=== PATIENT | male | born 1985 | race Caucasian/White ===

== ENCOUNTER 2022-05-07 00:16 | Emergency (ER) | payer MEDICAID ==
[~2022-05-07] VITALS: Ht 185.4 cm; Wt 104.3 kg
[2022-05-07] MEDS ORDERED: diphenhydrAMINE 50 MG/1 ML VIAL ONE (00:27)
[2022-05-07] MEDS ORDERED: HALOPERIDOL LACTATE 5 MG/1 ML VIAL ONE (00:27)
[2022-05-07] MEDS ORDERED: LORAZEPAM 2 MG/1 ML VIAL ONE (00:28)
[2022-05-07] MEDS ORDERED: HALOPERIDOL LACTATE 5 MG/1 ML VIAL IM ONE (00:30)
[2022-05-07] MEDS ORDERED: diphenhydrAMINE 50 MG/1 ML VIAL IM ONE (00:30)
[2022-05-07] MEDS ORDERED: LORAZEPAM 2 MG/1 ML VIAL IM ONE (00:30)
--- NOTE | 2022-05-07 00:46 | NUR ---
pt bib ra, per er triage assessment pt is here for psych evaluation. pt was given haldol, ativan and benadryl. pt is making noises but is otherwise cooperative.
[2022-05-07 00:53] LABS: HEMATOCRIT 50.4 % (36.7-47.1); MEAN CORPUSCULAR HEMOGLOBIN 30.5 uug (23.8-33.4); MEAN CORPUSCULAR VOLUME 88.8 fL (73.0-96.2); PLATELET COUNT (AUTO) 262 K/uL (152-348)
[2022-05-07 00:58] LABS: ALANINE AMINOTRANSFERASE 75 U/L (16-63); ALKALINE PHOSPHATASE 80 U/L (50-136); ASPARTATE AMINOTRANSFERASE 84 U/L (15-37); BILIRUBIN,DIRECT 0.4 mg/dL (0.0-0.2); BILIRUBIN,TOTAL 2.7 mg/dL (0.2-1.0); CARBON DIOXIDE 23 mmol/L (21-32); CHLORIDE 91 mmol/L (98-107); CREATININE 3.6 mg/dL (0.6-1.3); GLUCOSE 79 mg/dL (74-106); POTASSIUM 4.1 mmol/L (3.5-5.1); TOTAL PROTEIN, SERUM 8.5 g/dL (6.4-8.2); UREA NITROGEN, BLOOD 31 mg/dL (7-18)
[2022-05-07 00:59] LABS: ACETAMINOPHEN < 2.0 ug/mL (10-30); ETHANOL < 3 MG/DL (0-0)
--- NOTE | 2022-05-07 01:02 | NUR ---
Dr. Smith at bedside for mse.
[2022-05-07] MEDS ORDERED: IV NS 1000 ML 1,000 ML IV ONE ×3 (01:15→06:45)
[2022-05-07] MEDS ORDERED: LIDOCAINE 2% (GLYDO= UROJET) 10 ML JELLY MM ONE ×2 (01:18→01:45)
[2022-05-07 02:11] LABS: *BILIRUBIN,URIN 2+ (NEGATIVE); *CLARITY,URINE CLOUDY (CLEAR); *COLOR,URINE YELLOW (YELLOW); *KETONES,URINE 1+ (NEGATIVE); *UROBILINOGEN,URINE 0.2 E.U./dl (NORMAL); LEUKOCYTE ESTERASE ,URINE NEGATIVE (NEGATIVE); NITRITE, URINE NEGATIVE (NEGATIVE); UGLUCOSE NEGATIVE (NEGATIVE)
[2022-05-07 02:18] LABS: *BLOOD, URINE TRACE INTACT (NEGATIVE)
[2022-05-07 02:21] LABS: *AMPHETAMINE, URINE POSITIVE (NEGATIVE); *CANNABINOID, URINE NEGATIVE (NEGATIVE); *COCCAINE, URINE NEGATIVE (NEGATIVE); *OPIATE, URINE POSITIVE (NEGATIVE); *PHENCYCLIDINE SCREEN,URINE NEGATIVE (NEGATIVE)
--- NOTE | 2022-05-07 03:26 | NUR ---
pt desats, possible sleep apnea. 3 liters nc applied. pt will wake up and for no reason make moaning noises. and moves around with no reason.
[2022-05-07 07:58] LABS: CREATININE 2.2 mg/dL (0.6-1.3); POTASSIUM 4.4 mmol/L (3.5-5.1)
[2022-05-07 09:42] LABS: MUCUS,URINE MANY /LPF (0-FEW)
[2022-05-07 09:43] LABS: RBC,URINE 0-3 /HPF (0-3)
[2022-05-07 09:44] LABS: BACTERIA,URINE FEW /HPF (NONE SEEN); SQUAMOUS EPITHELIAL CELL,UR NONE SEEN /HPF (NONE SEEN)
[2022-05-07 09:45] LABS: URINE AMORPHOUS PHOSPHATES PRESENT /HPF
[2022-05-07] MEDS ORDERED: IV NORMAL SALINE 1000 ML BAG IV ONE (10:00)
[2022-05-07 13:10] VITALS: BP 141/72
--- NOTE | 2022-05-07 13:10 | NUR ---
Patient discharged to home in stable condition. Written and verbal after care instructions given. Patient verbalizes understanding of instructions. Stressed follow up or return to ER for worsening s/s.
== END 2022-05-07 13:12 | disposition home or self-care (01) ==
LOC: ER 00:16
DX: F15.10 Other stimulant abuse, uncomplicated (principal); R45.1 Restlessness and agitation; G47.30 Sleep apnea, unspecified; R00.0 Tachycardia, unspecified; R94.4 Abnormal results of kidney function studies; F11.10 Opioid abuse, uncomplicated; E86.0 Dehydration; E66.9 Obesity, unspecified; Z68.30 Body mass index [BMI] 30.0-30.9, adult; D72.89 Other specified disorders of white blood cells; Z59.00 Homelessness unspecified
CPT/HCPCS: 80076; 80048 ×2; 81001; 82140; 82550; 85025; 85379; 87426; 84484; 36415; 93005; 71045; 99285; 96360; 96361; 96372 ×2; 83605; 80299; 80320; 80307; J1200; J1630; J2060; J7040; A4663; G0480